=== PATIENT | male | born 1935 | race Caucasian/White ===

== ENCOUNTER 2018-07-28 11:05 | Emergency (ER) | payer MEDICARE ==
[~2018-07-28] VITALS: Ht 175.3 cm; Wt 74.8 kg
[2018-07-28] MEDS ORDERED: ACETAMINOPHEN 650 MG/20.3 ML UDC ONE (12:43)
[2018-07-28] MEDS ORDERED: IBUPROFEN 400 MG TABLET ONE (12:43)
[2018-07-28] MEDS ORDERED: ACETAMINOPHEN 650 MG/20.3 ML UDC PO ONE (13:00)
[2018-07-28] MEDS ORDERED: IBUPROFEN 400 MG TABLET PO ONE (13:00)
--- NOTE | 2018-07-28 13:07 | NUR ---
For discharge- Aftercare Instructions given. Verbalized understanding Home ambulatory Stable
[2018-07-28 13:08] VITALS: BP 140/80
== END 2018-07-28 13:09 | disposition home or self-care (01) ==
LOC: ER 11:08
DX: S20.211A Contusion of right front wall of thorax, initial encounter (principal); I10 Essential (primary) hypertension; W18.09XA Striking against other object with subsequent fall, initial encounter; Y93.69 Activity, other involving other sports and athletics played as a team or group; Y92.39 Other specified sports and athletic area as the place of occurrence of the external cause; Y99.8 Other external cause status
CPT/HCPCS: 71100-TC